=== PATIENT | female | born 1935 | race Caucasian/White ===

== ENCOUNTER 2024-04-29 11:45 | Inpatient (IN) | payer MEDICARE, SELFPAY ==
[2024-04-28 13:03] VITALS: BP 140/61
[2024-04-28 13:18] VITALS: BMI 20.4
[2024-04-28] MEDS: MORPHINE SULFATE 2 MG IV ×2 (13:52→18:59)
--- NOTE | 2024-04-28 14:14 | ED.MUSCINJ ---
HPI-Injury
General
Chief Complaint: Fall
Source: patient and family (Son at bedside)
Exam Limitations: none
Time Seen by Provider: 04/28/24 13:19
Nursing documentation reviewed up to this point in time: agreed with
History of Present Illness-Injury
Initial Injury comments:
88-year-old female with history of HTN, HLD states that she tripped on a cord and fell on the bathroom floor injuring her left orbit and has pain in the left upper thigh area unable to bear weight due to that pain. She is not anticoagulated, denies
loss of consciousness, denies headache or change in vision. She denies neck pain. She denies chest pain or trouble breathing. She denies abdominal pain. She is here from [place] visiting her son.
Past History
Past History
ED Past Medical History: HTN, Hypercholesterolemia, Other (Smoldering myeloma diagnosed 2 weeks ago) and Other (breast cancer 1998 with lumpectomy and radiation therapy)
ED Past Surgical History: Cholecystectomy and Orthopedic
Social History
Tobacco: Non-smoker
Alcohol: None
Personal: Single
Living: alone
Review of Systems
Review of Systems
Allergies reviewed?: Yes
All Other Systems: ROS reviewed and negative except as documented in HPI and ROS
Constitutional: Denies fever or fatigue
EENT: Reports other (bruising, swelling, pain left orbit, denies change in vision in left eye)
Respiratory: Denies trouble breathing
Cardiac: Denies chest pain or syncope
ABD/GI: Denies abdominal pain, nausea, vomiting or diarrhea
: Denies dysuria, difficulty voiding or urgency
Musculoskeletal: Reports other (pain left groin, upper thigh); Denies neck pain or back pain
Phy Exam
Physical Exam
Physical Exam:
GENERAL: No acute distress. A&Ox3.
CONSTITUTIONAL: Afebrile.
EYES: PERRL, conjunctivae normal, EOM's intact. Left mild swelling, periorbital moderate ecchymosis, visual blum intact
Neck: Supple
ENMT: moist mucus membranes, Pharynx nl
RESPIRATORY: Regular respirations, nonlabored, lungs clear.
CARDIOVASCULAR: Regular rate and rhythm, no murmurs, no rubs.
GI: Soft, nontender, normal BS
MUSCULOSKELETAL: No spinal bony tenderness. Tender to palpate left groin area. Moves with ease. Well perfused.
SKIN: Warm, dry, pink
PSYCH: Normal mood and affect. Well kept, interactive and appropriate
NEUROLOGIC: Awake, alert and oriented. No focal neurological deficits. Speech clear. Cranial nerves II through XII intact. Finger-nose intact.
Injury Course
Orders/Labs/Results
Orders:
Orders
04/28/24 13:24
Hip, Left 2-3 Views [CR Hip - LT w/wo Pel 2-3 Vw*] Urgent
Comment:
Reason For Exam: fall, pain
Include a pelvis x-ray?: Yes
04/28/24 13:29
Morphine Sulfate 2 mg IV NOW STA
04/28/24 13:[address] [CT Orbits W/o Iv Contrast] Urgent
Comment:
Reason For Exam: Left orbit injury from fall
04/28/24 14:20
Visual Acuity- Treatment ONCE
04/28/24 14:32
Ondansetron HCl [Zofran] 4 mg PO NOW STA
04/28/24 Dinner
Regular
At Your Request: Limited Participation
Does patient need a safe tray?: No
04/28/24 15:05
CT Pelvis W/o Iv Contrast Urgent
Comment:
Reason For Exam: evaluate pelvic ring fracture
ORTHOPEDIC CONSULT Urgent
Consulting Provider: Thom Ramirez
Was physician already notified: Yes
Reason for consult: pelvic ring fracture
04/28/24 15:12
Morphine Sulfate 4 mg IV NOW STA
04/28/24 15:20
Ondansetron Injectable [Zofran] 4 mg .ROUTE .STK-MED ONE
04/28/24 15:24
Ondansetron Injectable [Zofran] 4 mg IV NOW STA
04/28/24 16:23
Admit/Transfer Patient As Directed
Co-Sign Provider:
Level of Care: Observation services
Assign to:: Medical/Surgical
Physician / Group: denise
Diagnosis: fall
Code Status As Directed
Resuscitation Status: Full Code
04/28/24 18:55
Morphine Sulfate 2 mg IV Q4HPRN PRN
04/28/24 19:34
Acetaminophen [Tylenol] 650 mg PO Q4HPRN PRN
04/28/24 19:34
Activity As Directed
Activity Level: As Tolerated
Pneumatic Compression Sleeves As Directed
Type: Knee high
Vital Signs As Directed
Frequency: Per unit guidelines
Ot Eval And Treat Routine
Pt Eval And Treat Routine
Activity Level: As Tolerated
DX Deep Vein Thrombosis Video Routine
04/28/24 20:00
Calcium Carbonate [Oscal Juan C 500] 500 mg PO BID
Metoprolol [Lopressor] 25 mg PO BID
04/28/24 22:00
Rosuvastatin Calcium [Crestor] 5 mg PO HS
Topiramate [Topamax] 25 mg PO HS
04/29/24 07:01
Complete Blood Count/With Diff IN AM
Comprehensive Metabolic Panel IN AM
04/29/24 08:00
Topiramate [Topamax] 25 mg PO DAILY
Triamterene/Hctz [Dyazide] 1 capsule PO DAILY
MDM/Problems Addressed
MDM/Problems Addressed:
88-year-old female with history of HTN, HLD states that she tripped on a cord and fell on the bathroom floor injuring her left orbit and has pain in the left upper thigh area unable to bear weight due to that pain. She is not anticoagulated, denies
loss of consciousness, denies headache or change in vision. She denies neck pain. She denies chest pain or trouble breathing. She denies abdominal pain. She is here from [place] visiting her son.
Afebrile, VSS
Awake alert and oriented, no focal neurological deficits.
2:[address] orbits: Radiology report read: FINDINGS:
No acute fracture or dislocation. The left orbits are intact. Large left periorbital preseptal hematoma. The bilateral globes, extraocular muscles, and optic nerves are symmetric and within normal limits. Bilateral ocular lens implants. No
retrobulbar hematoma.
The paranasal sinuses are clear. Mild partial opacification of the bilateral mastoid air cells.
Limited intracranial evaluation is unremarkable.
Left hip and pelvis x-ray: Radiology report read: IMPRESSION:
Fractures of the left superior and inferior pubic rami.
3:15 p.m.
Case discussed with Orthopedic Dr. Ramirez who requests CT scan
Pt admitted, Hospitalist notified.
*Critical Care Note
Total Time (30-74mins, 75-104mins- exclusive of procedures): Not Applicable
ED Attending Note
-
Portions of this chart may have been created with voice recognition software.� Occasional wrong word or��sound alike� substitutions may have occurred due to the inherent limitations of voice recognition software.
Discharge Plan
Departure
Patient Disposition: Admit
Date of Disposition: 04/28/24
Time of Disposition: 15:06
Admit to: Med/Surg
Presentation/result/management discussed w/ accepting MD/DO: Hospitalist
Condition: Fair
Discharge Problem:
Fall from slip, trip, or stumble, Fracture, pelvis closed, Contusion of left orbit
Interventions
Interventions:
*Risk Screen - Suicide Last Done: 04/28/24 12:58
*General Assessment Last Done: 04/28/24 12:58
*Neglect/Abuse Screening Last Done: 04/28/24 13:18
*ED COVID-19 Vaccine History Last Done: 04/28/24 19:47
*Nursing Disposition Last Done: 04/28/24 19:36
ED-Musculoskeletal Assessment Last Done: 04/28/24 16:13
ED- Neurological Assessment Last Done: 04/28/24 16:13
ED-Skin Assessment Last Done: 04/28/24 16:13
Discharge Date and Time
Discharge Date/Time: 04/28/24 19:36
[2024-04-28 14:40] VITALS: BP 127/70
[2024-04-28 15:00] VITALS: BP 137/65
[2024-04-28] MEDS: MORPHINE SULFATE 4 MG IV (15:25)
[2024-04-28] MEDS: ZOFRAN 4 MG IV (15:25)
--- NOTE | 2024-04-28 16:26 | HPS.HSE ---
Family Physician
-
Family Physician: * NONE
Chief Complaint
-
fall, left hip pain, eye swelling
History of Present Illness
88-year-old female past medical history of smoldering myeloma diagnosed 2 weeks ago, breast cancer status post lumpectomy/radiation, hypertension, hyperlipidemia, prior right lower extremity DVT, chronic neuropathy, presenting after a fall. She
tripped on a cord and fell on the bathroom floor injuring her left orbital region and left upper thigh. She is unable to bear weight due to the pain. She denies loss of consciousness, headache or changes in vision. She denies neck pain. She
denies chest pain or trouble breathing. She denies abdominal pain.
Patient is from [place] and has been visiting her son.
She denies smoking alcohol use.
Medical History
Past Medical History
Past Medical History: Reports Other (smoldering myeloma diagnosed 2 weeks ago, breast cancer status post lumpectomy/radiation, hypertension, hyperlipidemia, prior right lower extremity DVT, chronic neuropathy)
Past Surgical History: Reports Orthopedic
Social History
Tobacco: Non-smoker
Alcohol: None
Drug: None
Family History
Family History: Not pertinent
Allergies / Home Medications
Allergies reflects when Allergies were last updated in [facility].
Home Medications with original date entered in [facility]
Allergy/Medication List:
Allergies
Allergy/AdvReac Type Severity Reaction Status Date / Time
No Known Allergies Allergy Unverified 04/28/24 12:58
Home Medications
Compound Cream 1 dose topical DAILY to LE nerve pain 04/28/24
calcium carbonate 500 mg PO BID Supplement 04/28/24
metoprolol tartrate 25 mg tablet 25 mg PO BID Blood Pressure 04/28/24
rosuvastatin 5 mg tablet 5 mg PO HS High Cholesterol 04/28/24
topiramate 25 mg tablet 25 mg PO DAILY Neurological Condition 04/28/24
topiramate 25 mg tablet 25 mg PO HS Neurological Condition 04/28/24
triamterene 37.5 mg-hydrochlorothiazide 25 mg tablet 1 tab PO DAILY Blood Pressure 04/28/24
Review of Systems
-
History Source: Patient
A 12 point ROS was completed and negative except as noted: Yes
Constitutional: Reports No Symptoms
EENT: Reports See HPI
Respiratory: Reports No Symptoms
Cardiac: Reports No Symptoms
Abdomen/GI: Reports No Symptoms
: Reports No Symptoms
Musculoskeletal: Reports See HPI
Skin: Reports No Symptoms
Neurological: Reports No Symptoms
Endocrine: Reports No Symptoms
Hematologic/Lymphatic: Reports No Symptoms
Psych: Reports No Symptoms
Physical Exam
Vital Signs
Vital Signs
Temp Pulse Resp BP Pulse Ox
97.8 F 63 17 137/65 96
04/28/24 12:58 04/28/24 15:30 04/28/24 15:30 04/28/24 15:00 04/28/24 15:30
Physical Exam
General: Well Developed, Well Nourished and No Apparent Distress
HEENT: NormoCephalic, Moist mucous membranes, Atraumatic and Other (left periorbital echymosis )
Respiratory: Clear
Cardiac: S1/S2 and Regular Rhythm; No Murmur or Rub
GI: Soft, Non Tender, Non Distended and Normal Bowel Sounds; No Organomegaly
Rectal: Deferred by Provider
Musculoskeletal: No Clubbing, No Cyanosis and No Edema
Skin: No Rash
Neuro: Nonfocal/grossly intact
Data Reviewed
-
Lab Data: Labs Reviewed by me
Old Records: Reviewed
Impression/Plan
-
IMPRESSION:
PLAN:
# Fractures of left superior/inferior pubic rami
# Left anterior pelvis/intramuscular hematoma in the left adductor musculature and left obturator internus muscle
-Orthopedics consulted
-PT/OT
-Tylenol, morphine for pain
# Large left periorbital preseptal hematoma
-Improving
Recently diagnosed smoldering myeloma
Breast cancer status postlumpectomy/radiation
History of right lower extremity DVT 1 year ago
-No longer on anticoagulation
Essential hypertension
-Continue metoprolol
-Continue triamterene/hydrochlorothiazide
Hyperlipidemia
-Continue statin
Lower extremity neuropathy
-Continue Topamax
Full code
DVT prophylaxis�SCDs
Regular diet
[2024-04-28 18:03] VITALS: BP 109/67
[2024-04-28] MEDS: FLUSH (NSS) 1 FLUSH IV (18:59)
[2024-04-28 19:00] LABS: Hematocrit 32.8 % (37.0-47.0); Hemoglobin 11.8 g/dL (12.0-16.0); Mean Corpuscular Hgb 31.1 pg (27.0-31.0); Mean Corpuscular Volume 86.3 fL (81.0-99.0); Mean Platelet Volume 10.3 fL (7.4-10.4); Platelet Count 176 10^3/uL (130-400); Red Cell Dist. Width 13.2 % (11.5-14.5); White Blood Cell Count 8.1 10^3/uL (4.8-10.8)
[2024-04-28 19:12] LABS: Blood Urea Nitrogen 20 mg/dl (7-17); Calcium 9.2 mg/dl (8.4-10.2); Carbon Dioxide 23 mmol/L (22-30); Chloride 105 mmol/L (98-107); Estimated Creatinine Clearance 33 ml/min; Glucose 108 mg/dl (70-99); Potassium 3.2 mmol/L (3.5-5.1); Sodium 136 mmol/L (135-145); eGFR > 60.00
[2024-04-28 19:47] VITALS: BMI 20.1
[2024-04-28 19:52] VITALS: BP 129/63; BMI 20.1
--- NOTE | 2024-04-28 20:30 | PTCARENOTE ---
Patient arrived from ED, was able to tolerate press puller into bed. Participated in admission, good historian. L eye swollen, ecdemic, patient denies visual impairment. HOB elevated. patient was able to sit on bedpan with minimal assist. Currently
eating dinner her son brought in.
[2024-04-28] MEDS: OSCAL CAL 500 500 MG PO (20:39)
[2024-04-28] MEDS: LOPRESSOR 25 MG PO (20:39)
[2024-04-28] MEDS: CRESTOR 5 MG PO (21:23)
[2024-04-28] MEDS: TOPAMAX 25 MG PO (21:24)
[2024-04-28 23:48] VITALS: BP 96/57
[2024-04-29] MEDS: MORPHINE SULFATE 2 MG IV ×2 (00:31→06:19)
[2024-04-29 07:19] LABS: % Basophils 0.3 % (0-2); % Eosinophils 0.4 % (0-6); % Immature Granulocytes 0.4 % (0-0.5); % Lymphocytes 16.6 % (20.5-51.1); % Monocytes 9.1 % (1.7-9.3); % Neutrophils 73.2 % (42.2-75.2); Absolute Lymphocytes 1.3 10^3/uL (1.2-3.4); Absolute Monocytes 0.7 10^3/uL (0.1-0.6); Absolute Neutrophils 5.6 10^3/uL (1.4-6.5); Hematocrit 33.9 % (37.0-47.0); Hemoglobin 11.2 g/dL (12.0-16.0); Mean Corpuscular Hgb 30.1 pg (27.0-31.0); Mean Corpuscular Volume 91.1 fL (81.0-99.0); Mean Platelet Volume 10.3 fL (7.4-10.4); Nucleated Red Blood Cells % 0 %; Platelet Count 173 10^3/uL (130-400); Red Blood Cell Count 3.72 10^6/uL (4.20-5.40); White Blood Cell Count 7.6 10^3/uL (4.8-10.8)
--- NOTE | 2024-04-29 07:29 | CON.ORTHO ---
Consultation
-
Date/Time Consultation Requested: 1459 04/28/2024
Date/Time Consultation Performed: 0645 04/28/2024
Requesting Provider: Luna Dent
Performing Provider: Geovany Ramirez
Reason for Consultation: L hip injury
Consultation - Orthopedics
History
Orthopedic Surgery Note
CC: left hip pain
HPI: 88-year-old female visiting from [place] presents for evaluation after a fall in the bathroom. She reports tripping on a cord and landing on the left side. She had immediate pain and inability to weight-bear. No prior hip pain. She lives alone.
PMH/PSH: myeloma, h/o CA breast, HTN, HL, h/o DVT, neuropathy
Medications: reviewed
Family History: Family history was reviewed. Noncontributory
Social history: Nonsmoker, no illicit drugs
Exam
General appearance: Pleasant. No acute distress.
Head: Normocephalic/atraumatic
Nose: No lesions or discharge.
Skin: No obvious rashes or open wounds
Lungs: No audible wheezing, no cough or sputum production
Musculoskeletal:
LLE:
skin intact without open wounds
fires ehl/fhl/ta/gs
sensation intact to light touch distally s/s/sp/dp/t
Toes wwp, 1+ DP
passive hip motion deferred due to presence of fracture
Imaging: Pelvis x-rays performed 04/28/2024 reviewed by me. These show minimally displaced fractures of the left superior and inferior pubic ramus. No signs of left proximal femur fracture.
Pelvis CT performed 04/28/2024 was reviewed by me. These show minimally displaced fractures of the left superior and inferior pubic rami. No signs of proximal femur fracture. No signs of posterior ring injury within the sacrum and SI joint.
AP:
88-year-old female with minimally displaced left superior and inferior pubic rami fractures after a fall 1 day ago. I discussed the injury with the patient and discussed treatment options. We discussed nonoperative treatment with touchdown
weightbearing on the left lower extremity. I recommended follow-up x-rays in about 4 weeks to assess her clinical progress. If x-rays remain unchanged and she is improving clinically, at that point she likely will be able to advance to
weightbearing as tolerated with a walker. We discussed that these injuries can take several months to heal and she should avoid further falls or injuries. She should work with physical therapy to assess fitness for returning to home or necessity
for fdc care. All questions were answered.
> 75 minutes was spent reviewing the clinical information, evaluating the patient, and formulating clinical plan.
Allergies / Home Medications
Allergy/AdvReac Type Severity Reaction Status Date / Time
No Known Allergies Allergy Unverified 04/28/24 12:58
�Medication �Instructions �Recorded
Compound Cream 1 dose topical DAILY to LE nerve 04/28/24
pain
calcium carbonate 500 mg PO BID Supplement 04/28/24
metoprolol tartrate 25 mg tablet 25 mg PO BID Blood Pressure 04/28/24
rosuvastatin 5 mg tablet 5 mg PO HS High Cholesterol 04/28/24
topiramate 25 mg tablet 25 mg PO DAILY Neurological 04/28/24
Condition
topiramate 25 mg tablet 25 mg PO HS Neurological Condition 04/28/24
triamterene 37.5 1 tab PO DAILY Blood Pressure 04/28/24
mg-hydrochlorothiazide 25 mg tablet
Vital Signs / Lab Results
Temp Pulse Resp BP Pulse Ox
98.2 F 66 16 96/57 95
04/28/24 23:48 04/28/24 23:48 04/28/24 23:48 04/28/24 23:48 04/28/24 23:48
04/29/24 07:01
[2024-04-29] MEDS: LOPRESSOR PO (07:57)
[2024-04-29] MEDS: DYAZIDE PO (07:57)
[2024-04-29] MEDS: OSCAL CAL 500 500 MG PO ×2 (07:59→20:52)
[2024-04-29] MEDS: TOPAMAX 25 MG PO ×2 (07:59→22:03)
[2024-04-29 08:01] VITALS: BP 97/56
[2024-04-29 08:09] LABS: ALT (SGPT) 11 U/L (0-35); AST (SGOT) 22 U/L (14-36); Albumin 3.5 g/dl (3.5-5.0); Alkaline Phosphatase 63 U/L (38-126); Blood Urea Nitrogen 20 mg/dl (7-17); Calcium 9.8 mg/dl (8.4-10.2); Carbon Dioxide 26 mmol/L (22-30); Chloride 102 mmol/L (98-107); Estimated Creatinine Clearance 28 ml/min; Glucose 104 mg/dl (70-99); Potassium 3.1 mmol/L (3.5-5.1); Sodium 136 mmol/L (135-145); Total Bilirubin 0.6 mg/dl (0.2-1.3); Total Protein 5.5 g/dl (6.3-8.2); eGFR > 60.00
[2024-04-29] MEDS: KCL ELIXIR 40 MEQ PO (08:41)
--- NOTE | 2024-04-29 11:23 | W.PN.HOSP.TC ---
Addendum entered and electronically signed by Ten Coronado MD 04/29/24 13:10:
update son over the phone in details too.
Original Note:
Today's Communication/Plan
-
PT/OT
Pain control
Assessment / Plan
Assessment / Plan
# Fractures of left superior/inferior pubic rami
# Left anterior pelvis/intramuscular hematoma in the left adductor musculature and left obturator internus muscle
-Orthopedics consulted
-PT/OT
-pain control
-Ortho recs touchdown weightbearing on the left lower extremity. follow-up x-rays in about 4 weeks to assess her clinical progress. If x-rays remain unchanged and she is improving clinically, at that point she likely will be able to advance to
weightbearing as tolerated with a walker.
# Large left periorbital preseptal hematoma
-Improving. No vision problems
Recently diagnosed smoldering myeloma
Breast cancer status postlumpectomy/radiation
History of right lower extremity DVT 1 year ago
-No longer on anticoagulation
Essential hypertension
-Continue metoprolol
-Continue triamterene/hydrochlorothiazide
-BP soft this am. Hold parameters added to bp meds
Hyperlipidemia
-Continue statin
Lower extremity neuropathy
-Continue Topamax
Full code
DVT prophylaxis�SCDs
d/w wtih daughter over the phone in details
Anticipated Discharge: Within 24 hours
Subjective/Interval History
-
Date of Service: April 29, 2024
States of severe pelvic pain with movement
states left eye wtih improvement in edema
no headache
Objective Data
-
Labs:
Laboratory Results
04/29/24
07:01
WBC 7.6
Hgb 11.2 L
Hct 33.9 L
Plt Count 173
Sodium 136
Potassium 3.1 L
Chloride 102
Carbon Dioxide 26
BUN 20 H
Creatinine 0.9
Glucose 104 H
Calcium 9.8
Total Bilirubin 0.6
AST 22
ALT 11
Alkaline Phosphatase 63
Vital Signs:
Vital Signs
Temp Pulse Resp BP Pulse Ox
98.3 F 67 20 97/56 95
04/29/24 08:01 04/29/24 08:01 04/29/24 08:01 04/29/24 08:01 04/29/24 10:20
I&O
04/28/24 04/29/24 04/30/24
06:59 06:59 06:59
Intake Total 240 / 240
Output Total 100 / 100
Balance 140 / 140
Physical Exam
-
General: Well Developed and No Apparent Distress
HEENT: Normocephalic, Atraumatic, Moist Mucous Membranes and Other (left periorbital edema and bruising noted )
Respiratory: Clear to Auscultation
Cardiac: Regular Rhythm and S1/S2; Negative Murmur, Rub or Gallop
GI: Soft, Nontender, Nondistended and Normal Bowel Sounds; Negative Organomegaly
Rectal: Deferred by Provider
Musculoskeletal: No Clubbing, No Cyanosis and No Edema
Skin: Negative Rash
Neuro: Awake and Nonfocal/Grossly Intact
Psych: Calm
[2024-04-29] MEDS: TYLENOL 650 MG PO ×2 (12:12→20:53)
[2024-04-29] MEDS: MORPHINE SULFATE 1 MG IV ×2 (12:31→23:11)
[2024-04-29] MEDS: FLUSH (NSS) 1 FLUSH IV ×2 (12:32→12:53)
[2024-04-29] MEDS: ZOFRAN 4 MG IV (12:53)
[2024-04-29 13:30] VITALS: BP 111/65; BP 124/73; PULSE 72; O2SAT 94
[2024-04-29 13:45] VITALS: BP 111/65; BP 124/73; PULSE 72; O2SAT 96
[2024-04-29 15:30] VITALS: BP 102/57
--- NOTE | 2024-04-29 15:35 | CM ---
CM met with Cora and her son at bedside earlier today to complete IA.
Cora is visiting from [place] and had a fall with new fx pelvis. She cannot return home until she is able to sit in a car for the [address]. It appears she may be medically stable for discharge tomorrow. I spoke with Cora and her son - they
feel that Cora cannot go to her son's home due to many steps and no bathroom facilities on the ground floor.
IMM reviewed with Cora and her son; they may appeal the discharge.
Referrals made for SNF transfer pending 3 day stay; Cora does not qualify for the [facility] SNF waiver.
Plan: CM to follow for SNF placement
[2024-04-29] MEDS: TYLENOL PO (17:05)
[2024-04-29] MEDS: LOPRESSOR 25 MG PO (20:52)
[2024-04-29] MEDS: CRESTOR 5 MG PO (22:03)
[2024-04-29 23:14] VITALS: BP 99/56
[2024-04-30] MEDS: TYLENOL PO ×5 (00:42→21:24)
[2024-04-30 02:41] VITALS: BP 129/66
[2024-04-30] MEDS: ULTRAM 25 MG PO (02:41)
[2024-04-30 06:49] LABS: % Basophils 0.5 % (0-2); % Eosinophils 1.3 % (0-6); % Immature Granulocytes 0.4 % (0-0.5); % Lymphocytes 16.6 % (20.5-51.1); % Monocytes 8.5 % (1.7-9.3); % Neutrophils 72.7 % (42.2-75.2); Absolute Eosinophils 0.1 10^3/uL (0-0.7); Absolute Lymphocytes 1.2 10^3/uL (1.2-3.4); Absolute Monocytes 0.6 10^3/uL (0.1-0.6); Absolute Neutrophils 5.4 10^3/uL (1.4-6.5); Hematocrit 32.1 % (37.0-47.0); Hemoglobin 10.6 g/dL (12.0-16.0); Mean Corpuscular Hgb 30.2 pg (27.0-31.0); Mean Corpuscular Volume 91.5 fL (81.0-99.0); Mean Platelet Volume 10.4 fL (7.4-10.4); Nucleated Red Blood Cells % 0 %; Platelet Count 145 10^3/uL (130-400); Red Blood Cell Count 3.51 10^6/uL (4.20-5.40); Red Cell Dist. Width 13.2 % (11.5-14.5); White Blood Cell Count 7.4 10^3/uL (4.8-10.8)
[2024-04-30 07:30] VITALS: BP 110/84
[2024-04-30] MEDS: TYLENOL 650 MG PO ×2 (08:41→12:53)
[2024-04-30] MEDS: OSCAL CAL 500 500 MG PO ×2 (08:41→21:20)
[2024-04-30] MEDS: LOPRESSOR 25 MG PO ×2 (08:42→21:20)
[2024-04-30] MEDS: TOPAMAX 25 MG PO ×3 (08:42→21:23)
[2024-04-30] MEDS: DYAZIDE PO (08:44)
--- NOTE | 2024-04-30 10:20 | W.PN.HOSP.TC ---
Today's Communication/Plan
-
pain control
await placement to SNF
Requires 3MN stay
family touring facilities
Assessment / Plan
Assessment / Plan
General: Well Developed and No Apparent Distress
HEENT: Normocephalic, Atraumatic, Moist Mucous Membranes and Other (left periorbital edema and bruising noted improving)
Respiratory: Clear to Auscultation
Cardiac: Regular Rhythm and S1/S2; Negative Murmur, Rub or Gallop
GI: Soft, Nontender, Nondistended and Normal Bowel Sounds; Negative Organomegaly
Rectal: Deferred by Provider
Musculoskeletal: No Clubbing, No Cyanosis and No Edema
Skin: Negative Rash
Neuro: Awake and Nonfocal/Grossly Intact
Psych: Calm
# Fractures of left superior/inferior pubic rami
# Left anterior pelvis/intramuscular hematoma in the left adductor musculature and left obturator internus muscle
-Orthopedics consulted
-PT/OT recs SNF-Await placement
-pain control
-Ortho recs touchdown weightbearing on the left lower extremity. follow-up x-rays in about 4 weeks to assess her clinical progress. If x-rays remain unchanged and she is improving clinically, at that point she likely will be able to advance to
weightbearing as tolerated with a walker.
# Large left periorbital preseptal hematoma
-Improving. No vision problems
Recently diagnosed smoldering myeloma
Breast cancer status postlumpectomy/radiation
History of right lower extremity DVT 1 year ago
-No longer on anticoagulation
Essential hypertension
-Continue metoprolol
-Continue triamterene/hydrochlorothiazide
-BP soft this am. Hold parameters added to bp meds
Hyperlipidemia
-Continue statin
Lower extremity neuropathy
-Continue Topamax
Full code
DVT prophylaxis�SCDs in setting of intramuscular hematoma
PT/OT-SNF. Requires 3MN stay. Ongoing dispo efforts
Anticipated Discharge: > 48 hours
Subjective/Interval History
-
Date of Service: April 30, 2024
pain controlled with meds
worse with movements at times
Objective Data
-
Labs:
Laboratory Results
04/30/24
06:28
WBC 7.4
Hgb 10.6 L
Hct 32.1 L
Plt Count 145
Vital Signs:
Vital Signs
Temp Pulse Resp BP Pulse Ox
98.7 F 71 18 110/84 97
04/30/24 07:30 04/30/24 08:42 04/30/24 07:30 04/30/24 08:42 04/30/24 09:45
I&O
04/29/24 04/30/24 05/01/24
06:59 06:59 06:59
Intake Total 240 / 240 720 / 720
Output Total 100 / 100 300 / 300
Balance 140 / 140 420 / 420
[2024-04-30] MEDS: MORPHINE SULFATE 1 MG IV ×2 (11:35→22:53)
--- NOTE | 2024-04-30 14:50 | CM ---
Addendum entered by Niurka Jenkins 05/01/24 13:27:
REBECA spoke with Cora's daughter. She plans to tour [facility] today, and would also consider [facility]. Will need to determine bed availability tomorrow.
CM to continue to follow for ARU vs. SNF.
Addendum entered by Niurka Jenkins 04/30/24 14:56:
SNF referrals sent to: [facility], [facility] [place], [facility], and [facility].
Original Note:
CM met with Cora's family and after touring facilities, they are requesting transfer to [facility] at . Referral sent via [facility].
I spoke with Nati Owens who advised that they would review the referral information on 05/02/2024.
CM will follow for ARU admission; will send SNF referrals as a back up plan.
[2024-04-30 15:10] VITALS: BP 100/55
[2024-04-30] MEDS: CRESTOR 5 MG PO (21:20)
[2024-04-30] MEDS: ZOFRAN 4 MG IV (21:21)
[2024-04-30 23:37] VITALS: BP 136/60
[2024-05-01] MEDS: TYLENOL PO ×5 (00:18→16:07)
[2024-05-01 06:20] VITALS: BP 108/55
[2024-05-01 07:17] LABS: % Basophils 0.3 % (0-2); % Eosinophils 0.9 % (0-6); % Immature Granulocytes 0.4 % (0-0.5); % Lymphocytes 14.6 % (20.5-51.1); % Monocytes 6.8 % (1.7-9.3); Absolute Eosinophils 0.1 10^3/uL (0-0.7); Absolute Lymphocytes 1.1 10^3/uL (1.2-3.4); Absolute Monocytes 0.5 10^3/uL (0.1-0.6); Absolute Neutrophils 5.8 10^3/uL (1.4-6.5); Hematocrit 30.3 % (37.0-47.0); Hemoglobin 10.3 g/dL (12.0-16.0); Mean Corpuscular Hgb 30.4 pg (27.0-31.0); Mean Corpuscular Volume 89.4 fL (81.0-99.0); Nucleated Red Blood Cells % 0 %; Platelet Count 162 10^3/uL (130-400); Red Blood Cell Count 3.39 10^6/uL (4.20-5.40); Red Cell Dist. Width 13.1 % (11.5-14.5); White Blood Cell Count 7.5 10^3/uL (4.8-10.8)
[2024-05-01 07:20] VITALS: BP 108/55
[2024-05-01] MEDS: DYAZIDE PO (07:52)
[2024-05-01] MEDS: LOPRESSOR PO (07:53)
[2024-05-01] MEDS: OSCAL CAL 500 500 MG PO ×2 (07:53→21:10)
[2024-05-01] MEDS: ULTRAM 25 MG PO (10:05)
--- NOTE | 2024-05-01 11:31 | W.PN.HOSP.TC ---
Addendum entered and electronically signed by Ten Coronado MD 05/01/24 13:27:
PT OT recommends acute rehab. PMNR consulted. Discussed with daughter at bedside in details.
Original Note:
Today's Communication/Plan
-
Pain control
Out of bed
Await placement to SNF
adjust bp meds
Assessment / Plan
Assessment / Plan
General: Well Developed and No Apparent Distress
HEENT: Normocephalic, Atraumatic, Moist Mucous Membranes and Other (left periorbital edema and bruising noted improving)
Respiratory: Clear to Auscultation
Cardiac: Regular Rhythm and S1/S2; Negative Murmur, Rub or Gallop
GI: Soft, Nontender, Nondistended and Normal Bowel Sounds; Negative Organomegaly
Rectal: Deferred by Provider
Musculoskeletal: No Clubbing, No Cyanosis and No Edema
Skin: Negative Rash
Neuro: Awake and Nonfocal/Grossly Intact
Psych: Calm
# Fractures of left superior/inferior pubic rami
# Left anterior pelvis/intramuscular hematoma in the left adductor musculature and left obturator internus muscle
-Orthopedics consulted
-PT/OT recs SNF-Await placement
-pain control
-Ortho recs touchdown weightbearing on the left lower extremity. follow-up x-rays in about 4 weeks to assess her clinical progress. If x-rays remain unchanged and she is improving clinically, at that point she likely will be able to advance to
weightbearing as tolerated with a walker.
# Large left periorbital preseptal hematoma
-Improving. No vision problems
Recently diagnosed smoldering myeloma
Breast cancer status postlumpectomy/radiation
History of right lower extremity DVT 1 year ago
-No longer on anticoagulation
Essential hypertension
-Continue metoprolol and will decreased dose to 12.5mg BID
-Continue triamterene/hydrochlorothiazide. May need to stop on DC if requiring it.
-Blood pressure has been soft and has not received triamterene/hydrochlorothiazide so far.
-Blood pressure 108/58
-Hold parameters added to bp meds
Hyperlipidemia
-Continue statin
Lower extremity neuropathy
-Continue Topamax
Full code
DVT prophylaxis�SCDs in setting of intramuscular hematoma
PT/OT-SNF. Requires 3MN stay. Ongoing dispo efforts
Anticipated Discharge: > 48 hours
Subjective/Interval History
-
Date of Service: May 01, 2024
States of intermittent pain
Objective Data
-
Labs:
Laboratory Results
05/01/24
05:52
WBC 7.5
Hgb 10.3 L
Hct 30.3 L
Plt Count 162
Vital Signs:
Vital Signs
Temp Pulse Resp BP Pulse Ox
97.7 F 59 16 108/58 96
05/01/24 07:20 05/01/24 07:53 05/01/24 07:20 05/01/24 07:53 05/01/24 10:35
I&O
04/30/24 05/01/24 05/02/24
06:59 06:59 06:59
Intake Total 720 / 720 1800 / 1800
Output Total 300 / 300
Balance 420 / 420 1800 / 1800
[2024-05-01] MEDS: MORPHINE SULFATE 1 MG IV (15:18)
[2024-05-01] MEDS: FLUSH (NSS) 1 FLUSH IV (15:19)
[2024-05-01 15:20] VITALS: BP 133/65
[2024-05-01 16:24] VITALS: BP 120/58; PULSE 73; O2SAT 93
[2024-05-01] MEDS: LOPRESSOR 12.5 MG PO (21:10)
[2024-05-01] MEDS: TYLENOL 650 MG PO (21:11)
[2024-05-01] MEDS: CRESTOR 5 MG PO (21:11)
[2024-05-01] MEDS: TOPAMAX 25 MG PO (21:11)
[2024-05-01 23:24] VITALS: BP 104/56
[2024-05-02] MEDS: TYLENOL 650 MG PO ×4 (03:57→21:44)
--- NOTE | 2024-05-02 06:17 | W.PN.UPDATE ---
Update Note
Progress Note Update
Pt having dysuria.Would like ua checked. Will order.
--- NOTE | 2024-05-02 06:17 | PTCARENOTE ---
Pt aaox3 able to make her needs known.Pt aware of prn pain meds & scheduled tylenol.Pt encouraged to get oob as needed with assist.Pt prefers to do it in am.Pt c/o burning this am with voiding.Pt was bladder scanned for 202 & pt voided 150 in
bedpan.COKE DRAWER sales contracts analyst made aware of it & pt wants to urine specimen send.BRIGHT CUTTER was notified of pt complaints as pt states she knows when she gets a UTI. pt was also provided with more PO intake.Plan of care continued.
[2024-05-02 07:40] VITALS: BP 127/71
[2024-05-02 07:47] LABS: % Basophils 0.4 % (0-2); % Eosinophils 1.6 % (0-6); % Immature Granulocytes 0.4 % (0-0.5); % Lymphocytes 15.2 % (20.5-51.1); % Monocytes 7.7 % (1.7-9.3); % Neutrophils 74.7 % (42.2-75.2); Absolute Eosinophils 0.1 10^3/uL (0-0.7); Absolute Lymphocytes 1.1 10^3/uL (1.2-3.4); Absolute Monocytes 0.5 10^3/uL (0.1-0.6); Absolute Neutrophils 5.2 10^3/uL (1.4-6.5); Hematocrit 29.5 % (37.0-47.0); Hemoglobin 10.2 g/dL (12.0-16.0); Mean Corp Hgb Conc. 34.6 g/dL (33.0-37.0); Mean Corpuscular Hgb 30.6 pg (27.0-31.0); Mean Corpuscular Volume 88.6 fL (81.0-99.0); Mean Platelet Volume 10.7 fL (7.4-10.4); Nucleated Red Blood Cells % 0 %; Platelet Count 165 10^3/uL (130-400); Red Blood Cell Count 3.33 10^6/uL (4.20-5.40); Red Cell Dist. Width 13.1 % (11.5-14.5)
[2024-05-02] MEDS: LOPRESSOR 12.5 MG PO ×2 (08:09→21:43)
[2024-05-02] MEDS: OSCAL CAL 500 500 MG PO ×2 (08:10→21:44)
[2024-05-02] MEDS: TOPAMAX 25 MG PO ×2 (08:10→21:45)
[2024-05-02] MEDS: DYAZIDE 1 CAPSULE PO (08:10)
[2024-05-02 08:40] LABS: Urine Albumin Negative (Neg - Trace); Urine Bilirubin Negative (Negative); Urine Character Clear (Clear); Urine Color Yellow; Urine Glucose Negative (Negative); Urine Ketone Negative (Negative); Urine Leukocyte 2+ (Negative); Urine Nitrite Negative (Negative); Urine Occult Blood Negative (Negative); Urine Urobilinogen Negative (Neg - 1+)
[2024-05-02 09:15] LABS: Urine Bacteria Many (Negative); Urine Red Blood Cell 0-2 /HPF (0-2); Urine White Cell 26-30 /HPF (0-5)
[2024-05-02] MEDS: ULTRAM 25 MG PO (10:16)
--- NOTE | 2024-05-02 10:23 | W.PN.HOSP.TC ---
Addendum entered and electronically signed by Ten Coronado MD 05/02/24 11:30:
hypokalemia-replete/monitor
Original Note:
Today's Communication/Plan
-
Await PMNR evaluation
Acute rehab on dispo
Ongoing disposition efforts
Case management aware
Assessment / Plan
Assessment / Plan
General: Well Developed and No Apparent Distress
HEENT: Normocephalic, Atraumatic, Moist Mucous Membranes and Other (left periorbital edema and bruising noted improving)
Respiratory: Clear to Auscultation
Cardiac: Regular Rhythm and S1/S2; Negative Murmur, Rub or Gallop
GI: Soft, Nontender, Nondistended and Normal Bowel Sounds; Negative Organomegaly
Rectal: Deferred by Provider
Musculoskeletal: No Clubbing, No Cyanosis and No Edema
Skin: Negative Rash
Neuro: Awake and Nonfocal/Grossly Intact
Psych: Calm
# Fractures of left superior/inferior pubic rami
# Left anterior pelvis/intramuscular hematoma in the left adductor musculature and left obturator internus muscle
-Orthopedics consulted
-PT/OT recs SNF-Await placement
-pain control
-Ortho recs touchdown weightbearing on the left lower extremity. follow-up x-rays in about 4 weeks to assess her clinical progress. If x-rays remain unchanged and she is improving clinically, at that point she likely will be able to advance to
weightbearing as tolerated with a walker.
# Large left periorbital preseptal hematoma
-Improving. No vision problems
Recently diagnosed smoldering myeloma
Breast cancer status postlumpectomy/radiation
History of right lower extremity DVT 1 year ago
-No longer on anticoagulation
Essential hypertension
-Continue metoprolol and will decreased dose to 12.5mg BID
-Blood pressure has been soft and has not received triamterene/hydrochlorothiazide intermittently
-Blood pressure 127/71
-Hold parameters added to bp meds
Hyperlipidemia
-Continue statin
Lower extremity neuropathy
-Continue Topamax
Full code
DVT prophylaxis�SCDs in setting of intramuscular hematoma
PT/OT-acute rehab. PMNR consulted.
Anticipated Discharge: 24 - 48 hours
Subjective/Interval History
-
Date of Service: May 02, 2024
Agreed to get OOB
Objective Data
-
Labs:
Laboratory Results
05/02/24
06:56
WBC 7.0
Hgb 10.2 L
Hct 29.5 L
Plt Count 165
Vital Signs:
Vital Signs
Temp Pulse Resp BP Pulse Ox
97.4 F 64 16 127/71 95
05/02/24 07:40 05/02/24 08:10 05/02/24 07:40 05/02/24 08:10 05/02/24 07:40
I&O
05/01/24 05/02/24 05/03/24
06:59 06:59 06:59
Intake Total 1800 / 1800 480 / 480
Balance 1800 / 1800 480 / 480
--- NOTE | 2024-05-02 10:59 | PN.CDI ---
CDI
- -
CDI:
Physician Documentation Request
Admit Date: 04/29/24 11:45
Dear Doctor Cliff,
Clinical Indicators:
Patient admitted with fractures of left superior/inferior pubic rami.
7/5 Potassium Elixir 40 meq po x 1.
Potassium levels:
04/28/24 04/29/24
18:54 07:01
Potassium 3.2 L 3.1 L
Based on the above, could you clarify in the progress notes, the appropriate diagnosis, if significant, that supports the above abnormalities and additional evaluation, monitoring and/or treatment rendered:
Hypokalemia
Abnormal lab values, clinically insignificant
Other
Use of terms such as suspected, likely, concern for, or probable (associated with a specific diagnosis that is being evaluated, monitored, or treated as if it exists) are acceptable and can be coded in the inpatient setting, when documented at the
time of discharge.
Thank you,
ASHLEIGH Gudino RN
CDI Specialist
available via tiger text
Please use your independent medical judgment in providing your response.
--- NOTE | 2024-05-02 11:31 | CM ---
Addendum entered by Niurka Jenkins 05/02/24 15:59:
Family is considering transfer to [facility] for rehabilitation rather than [facility] since it is not yet clear if she will be accepted and if there is a bed available. [facility] is reviewing the therapy notes and needs to get approval from
their team prior to giving an acceptance. [facility] will require a covid test prior to transfer if accepted.
Transport will be via w/c van. Daughter will need to be contacted for payment once w/c van set up.
Original Note:
CM spoke with Nati at [facility] regarding transfer today. Uncertain if patient will be able to tolerate acute rehab; will review with [facility] team and also needs to determine bed availablility.
CM to follow; await determination for transfer to [facility].
[2024-05-02 12:10] VITALS: BP 125/65; BP 139/73; PULSE 73; O2SAT 95
[2024-05-02 13:20] VITALS: BP 125/65; BP 139/73; PULSE 73; O2SAT 95
[2024-05-02] MEDS: TYLENOL PO ×2 (13:26)
[2024-05-02 15:14] VITALS: BP 137/79
[2024-05-02] MEDS: CRESTOR 5 MG PO (21:45)
[2024-05-02 23:08] VITALS: BP 121/71
[2024-05-03] MEDS: TYLENOL PO ×3 (00:29→13:54)
[2024-05-03] MEDS: ULTRAM 25 MG PO (03:19)
--- NOTE | 2024-05-03 03:29 | W.PN.UPDATE ---
Addendum entered and electronically signed by ANDREW Bennett 05/03/24 03:42:
CrCl<30 will change to Keflex
Original Note:
Update Note
Progress Note Update
pt with dysuria. Ua from yesterday morning with +leukocytes.
given uti symptoms will starts abx. pt states she normally is given macrobid from previous uti
--- NOTE | 2024-05-03 06:26 | PTCARENOTE ---
Pt c/o urinary frequency & burning in the morning. RETAIL HELPER bone crusher made aware of it pt voided 200cc in bedpan at this time. Pt refused to get oob overnight & prefers to use the bedpan. Pt was made aware of prn pain meds as needed for left hip pain.
Call smith in reach.CONSULTANTS INTERN ordered antibiotic for pt.Plan of care continued.
[2024-05-03 07:00] VITALS: BP 132/70
[2024-05-03 07:09] LABS: % Basophils 0.5 % (0-2); % Eosinophils 1.1 % (0-6); % Immature Granulocytes 0.3 % (0-0.5); % Lymphocytes 15.1 % (20.5-51.1); % Monocytes 6.6 % (1.7-9.3); % Neutrophils 76.4 % (42.2-75.2); Absolute Eosinophils 0.1 10^3/uL (0-0.7); Absolute Lymphocytes 0.9 10^3/uL (1.2-3.4); Absolute Monocytes 0.4 10^3/uL (0.1-0.6); Absolute Neutrophils 4.8 10^3/uL (1.4-6.5); Hematocrit 30.7 % (37.0-47.0); Hemoglobin 10.7 g/dL (12.0-16.0); Mean Corp Hgb Conc. 34.9 g/dL (33.0-37.0); Mean Corpuscular Hgb 30.7 pg (27.0-31.0); Mean Corpuscular Volume 88.2 fL (81.0-99.0); Mean Platelet Volume 10.6 fL (7.4-10.4); Nucleated Red Blood Cells % 0 %; Platelet Count 191 10^3/uL (130-400); Red Blood Cell Count 3.48 10^6/uL (4.20-5.40); Red Cell Dist. Width 13.1 % (11.5-14.5); White Blood Cell Count 6.2 10^3/uL (4.8-10.8)
[2024-05-03 07:34] LABS: Blood Urea Nitrogen 15 mg/dl (7-17); Calcium 9.1 mg/dl (8.4-10.2); Carbon Dioxide 27 mmol/L (22-30); Chloride 104 mmol/L (98-107); Estimated Creatinine Clearance 37 ml/min; Glucose 105 mg/dl (70-99); Potassium 3.3 mmol/L (3.5-5.1); Sodium 137 mmol/L (135-145); eGFR > 60.00
--- NOTE | 2024-05-03 09:49 | W.PN.HOSP.TC ---
Today's Communication/Plan
-
dc today
Assessment / Plan
Assessment / Plan
General: Well Developed and No Apparent Distress
HEENT: Normocephalic, Atraumatic, Moist Mucous Membranes and Other (left periorbital edema and bruising noted improving)
Respiratory: Clear to Auscultation
Cardiac: Regular Rhythm and S1/S2; Negative Murmur, Rub or Gallop
GI: Soft, Nontender, Nondistended and Normal Bowel Sounds; Negative Organomegaly
Rectal: Deferred by Provider
Musculoskeletal: No Clubbing, No Cyanosis and No Edema
Skin: Negative Rash
Neuro: Awake and Nonfocal/Grossly Intact
Psych: Calm
# Fractures of left superior/inferior pubic rami
# Left anterior pelvis/intramuscular hematoma in the left adductor musculature and left obturator internus muscle
-Orthopedics consulted
-PT/OT recs SNF-Await placement
-pain control
-Ortho recs touchdown weightbearing on the left lower extremity. follow-up x-rays in about 4 weeks to assess her clinical progress. If x-rays remain unchanged and she is improving clinically, at that point she likely will be able to advance to
weightbearing as tolerated with a walker.
#Symptomatic uti
-cont keflex
Hypokalemia
replete/monitor
# Large left periorbital preseptal hematoma
-Improving. No vision problems
Recently diagnosed smoldering myeloma
Breast cancer status postlumpectomy/radiation
History of right lower extremity DVT 1 year ago
-No longer on anticoagulation
Essential hypertension
-Continue metoprolol and will decreased dose to 12.5mg BID
-Blood pressure has been soft and has not received triamterene/hydrochlorothiazide intermittently
-Blood pressure controlled.
-Hold parameters added to bp meds
Hyperlipidemia
-Continue statin
Lower extremity neuropathy
-Continue Topamax
Full code
DVT prophylaxis�SCDs in setting of intramuscular hematoma
PT/OT-acute rehab.
d/w with daughter over the phone in details
More than 30 minutes spent in discharge including
Final examination of the patient
Summarizing hospital stay
Instructions for continuing care to all relevant caregivers
Preparation of discharge records, prescriptions, and referral forms
Total time spent (in minutes): 45
Anticipated Discharge: Today
Subjective/Interval History
-
Date of Service: May 03, 2024
states passing gas
Objective Data
-
Labs:
Laboratory Results
05/03/24
06:36
WBC 6.2
Hgb 10.7 L
Hct 30.7 L
Plt Count 191
Sodium 137
Potassium 3.3 L
Chloride 104
Carbon Dioxide 27
BUN 15
Creatinine 0.7
Glucose 105 H
Calcium 9.1
Vital Signs:
Vital Signs
Temp Pulse Resp BP Pulse Ox
97.5 F 70 12 132/70 98
05/03/24 07:00 05/03/24 07:00 05/03/24 07:00 05/03/24 07:00 05/03/24 07:00
I&O
05/02/24 05/03/24 05/04/24
06:59 06:59 06:59
Intake Total 480 / 480 1680 / 1680
Balance 480 / 480 1680 / 1680
[2024-05-03] MEDS: KEFLEX 500 MG PO (10:09)
[2024-05-03] MEDS: DYAZIDE 1 CAPSULE PO (10:09)
[2024-05-03] MEDS: TOPAMAX 25 MG PO (10:10)
[2024-05-03] MEDS: LOPRESSOR 12.5 MG PO (10:10)
[2024-05-03] MEDS: KCL 40 MEQ PO (10:12)
[2024-05-03] MEDS: OSCAL CAL 500 500 MG PO (10:12)
[2024-05-03] MEDS: MIRALAX 17 GRAMS PO (10:16)
[2024-05-03] MEDS: COLACE 100 MG PO (10:16)
[2024-05-03] MEDS: TYLENOL 650 MG PO (10:24)
--- NOTE | 2024-05-03 11:31 | CM ---
Addendum entered by Thelma Turner 05/03/24 16:00:
COVID results faxed to [facility] per request [phone]
Original Note:
CM reviewed pt with Dr Coronado- pt ready for dc
Meeting with dtr/Judi at nurse's desk as pt receiving bedside care
Bed offered at [facility] and dtr in agreement
IMM verbally reviewed- copy provided
Dtr in agreement with fees for WC van
Transport form completed
Number for van payment provided to dtr
COVID test requested per SNF request
Nursing, attending and SNF admissions/Emily [phone] aware of dc details
Discharge Disposition- [facility] via WC van
Phone- [phone] request rehab nurse
Fax- [phone]
[2024-05-03 11:37] LABS: COVID-19 Antigen Negative (Negative)
[2024-05-03] MEDS: ZOFRAN 4 MG IV (11:52)
--- NOTE | 2024-05-03 11:52 | CON.MD ---
Addendum entered and electronically signed by Neo Mcarthur MD 05/03/24 13:51:
A total of 60 minutes were spent with the patient preparing for the evaluation, obtaining history, performing examination and evaluation, counseling, data review, case management, care coordination, grey stock recorder, and EMR documentation.
Original Note:
Consultation - Medical
-
Referring Provider:�Dr. Ten Coronado
Chief Complaint:�Pubic rami fracture and intramuscular hematoma
�
History of Present Illness:�88-year-old female with PMH (as below) presented to [facility] on 04/28/2024 after tripping on a cord and falling in the bathroom. Noted with pelvic pain and found to have a left superior and inferior pubic rami
fracture as well as as well as left anterior pelvis/intramuscular hematoma of the left adductor musculature and left obturator internus muscle. Seen by orthopedics and is toe-touch weightbearing left lower extremity. Also noted with a large left
periorbital preseptal hematoma. Noted with dysuria and started on antibiotics. Also with hypokalemia with replacement.
�
Past Medical History:�Smoldering myeloma diagnosed 2 weeks ago, breast cancer status postlumpectomy/radiation, hypertension, hyperlipidemia, history of right lower extremity DVT, chronic neuropathy, UTI
Procedure History:�Breast lumpectomy, vein stripping procedure and another procedure to help with the pain of having the vein stripping
Family History:�Denies
�
Social History:�
Functional Level Premorbidly:�Independent with all activities�
Functional Level Currently:�Max assist toileting, mod assist toilet transfer. Min assist for sit to stand transfer. Ambulating 20 feet x 1 min assist with rolling walker requiring constant cues for toe-touch weightbearing.
�
Tobacco:Denies�
Alcohol:Denies�
Drug use:�Denies�
�
Lives with:�Lives alone in [place]
24-hour assistance available:�Yes
Number of floors:�2
# steps to enter:�2
# steps to second floor: Full flight
Potential First floor set up:�Possibly
Driving:�Yes
Occupation:�Retired
�
�
Allergies:�
Allergy/AdvReac Type Severity Reaction Status Date / Time
No Known Allergies Allergy Unverified 04/28/24 12:58
�
Review of Systems:�
Constitutional: (x) abNormal _felt a little off with morphine use.
Eye: (x) Normal _
Ear/Nose/Throat: (x) Normal _
Respiratory: (x) Normal _
Cardiovascular: (x) Normal _
Gastrointestinal: (x) Normal _
Genitourinary: (x) abNormal _had a few small pebble bowel movements but feels constipated.
Musculoskeletal: (x) abNormal _hip pain with activity of either leg.
Integumentary: (x) Normal _
Neurologic: (x) Normal _denies any vision problems, concentration problems or any other concussion symptoms. No headache.
Psychiatric: (x) Normal _
Endocrine: (x) Normal _
Hematologic/Lymphatic: (x) Normal _
Allergic/Immunologic: (x) Normal _
�
Medications:�
Active Current Visit Medication List
Category Date Time Status
Acetaminophen [Tylenol] Med 04/29/24 12:00 Active
650 mg PO Q4H
Calcium Carbonate [Oscal Juan C 500] Med 04/28/24 20:00 Active
500 mg PO BID
Cephalexin Monohydrate [Keflex] Med 05/03/24 08:00 Active
500 mg PO BID
Flush (0.9% Sodium Chloride) [Flush (Nss)] Med 04/28/24 19:00 Active
See Dose Instructions IV PER PROTOCOL
Metoprolol [Lopressor] Med 05/01/24 20:00 Active
12.5 mg PO BID
Ondansetron Injectable [Zofran] Med 04/29/24 12:39 Active
4 mg IV Q6HPRN PRN
Polyethylene Glycol Powder [Miralax] Med 05/03/24 10:00 Active
17 grams PO DAILY
Rosuvastatin Calcium [Crestor] Med 04/28/24 22:00 Active
5 mg PO HS
Topiramate [Topamax] Med 04/29/24 08:00 Active
25 mg PO DAILY
Topiramate [Topamax] Med 04/28/24 22:00 Active
25 mg PO HS
Tramadol HCl [Ultram] Med 04/29/24 08:13 Active
25 mg PO [id number] PRN
Triamterene/Hctz [Dyazide] Med 04/29/24 08:00 Active
1 capsule PO DAILY
�
Vitals:�
Temp Pulse Resp BP Pulse Ox
97.5 F 70 12 132/70 98
05/03/24 07:00 05/03/24 10:09 05/03/24 07:00 05/03/24 10:09 05/03/24 07:00
Height 4 ft 10 in
Actual Weight 43.545 kg
Body Mass Index (BMI) 20.1
�
Physical Exam:�
General Appearance/Observation: Well-developed, well-nourished female in no apparent distress.�
Pain/Comfort Assessment: Minimal pain at rest, can be severe with leg activity
Mood/Affect: Appropriate�
Skin: Left eye/face ecchymosis from supraorbital area to left chin
Eyes: Conjunctiva/Lids: normal���� Pupils: pupils equal round and reactive to light
Ears/Nose/Throat: oral mucosa moist,� throat clear.������������ Lips/Teeth/Gums: normal�
Cardiovascular: Heart: regular, no murmur�
Pulses: dorsalis pedis 2+ bilaterally�
Respiratory: Respiratory Effort/Chest Expansion: normal������� Auscultation: Clear to auscultation bilaterally�
Gastrointestinal: abdomen not tender, no distension, normal abdominal bowel sounds
Genitourinary: No [place]�
Rectal Exam: Deferred�
Extremities:�Edema: None�Cyanosis: None�Trophic�changes: None
�
Neurology Exam:
Orientation: Alert, Oriented to self, Time, Place�
Memory: Intact recent medical concerns
Comprehension: Intact
Two step command: Intact
Cranial Nerves:
�� CNII:�Pupillary light reflex: Intact���
�� CN III, IV, : Extraocular muscles: Intact�
�� CN VII:�Facial movement: Symmetric
�� CN VIII:�Hearing: Normal
�� CN IX/X:�Speech & swallow: Normal,�Position of Uvula: Midline
�� CN XI:�Shoulder shrug: Symmetric
�� CN XII:�Tongue protrusion: Midline
Sensory:
�� Light touch: Intact in bilateral upper and lower extremities
�
Musculoskeletal: Motor: (Manual muscle scale 0-5)�
Muscle SA EF WE EE FF FA HF KE DF EHL PF
Right� 5 5 5 5 5 5 4 4 5 5 5
Left 5 5 5 5 5 5 2 3+ 5 5 5
�
Tone: Normal in all extremities�
Range of Motion: Passively within functional limits in all extremities�
�
Lab Results
Laboratory Data
05/03/24 06:36
05/03/24 06:36
Total Bilirubin 0.6 mg/dl (0.2-1.3) 04/29/24 07:01
AST 22 U/L (14-36) 04/29/24 07:01
ALT 11 U/L (0-35) 04/29/24 07:01
Alkaline Phosphatase 63 U/L (38-126) 04/29/24 07:01
Total Protein 5.5 g/dl (6.3-8.2) L 04/29/24 07:01
Albumin 3.5 g/dl (3.5-5.0) 04/29/24 07:01
�
Diagnostic Results:as per HPI�
�
Assessment
88-year-old female status post fall with left superior and inferior pubic rami fracture as well as as well as left anterior pelvis/intramuscular hematoma of the left adductor musculature and left obturator internus muscle causing ADL and amatory
dysfunction.
Plan�
PM&RPT/OT to increase independence with ADLs, improve balance, coordination, endurance, strength, mobility, community reintegration, decreased burden of care on others and family education.�
�
Left superior and inferior pubic rami fracture as well as as well as left anterior pelvis/intramuscular hematoma of the left adductor musculature and left obturator internus muscle: Toe-touch weightbearing, pain control, follow-up with orthopedics.
-Discussed different types of pain medication and how they can affect her. Using tramadol 25 mg currently but not strong enough, consider 50 mg.
-Morphine did not work well for her based upon side effects of not feeling right and constipation.
UTI: On Keflex per primary team.
HTN: Metoprolol, triamterene/hydrochlorothiazide monitor closely�
Right leg neuropathic pain: Topamax, did not tolerate gabapentin due to lethargy for 2 days after taking it
HLD: Statin�
Anemia: Likely multifactorial.� Continue to monitor.�
Psych: Psychology consult.� Monitor mood, adjust medications as needed.�
Skin: monitor for pressure sores/rashes/lesions.�
FEN: potassium supplement
Pain: acetaminophen or tramadol as needed.� Can increase tramadol to 50 mg and monitor.
Bowel: Constipated. Colace and Senna, PRN bisacodyl.�
Bladder: Time void, PVRs, PRN straight cath.�
DVT Prophylaxis: history of DVT, suggest chemoprophylaxis.�
Pulmonary: Incentive spirometry�
Safety: Continue to reinforce assistance with all transfers.�
Code Status:� Full code
Dispo(date/plan/equipment needs): Home with family care.� Social history reviewed.�
Functional and Medical Goals:�Modified Independent with ADL�s, ambulation, transfers�
Discharge Destination: SNF�
�
Summary of recommendations:
-�Discharge Destination:�SNF�
Left superior and inferior pubic rami fracture as well as as well as left anterior pelvis/intramuscular hematoma of the left adductor musculature and left obturator internus muscle: Toe-touch weightbearing, pain control, follow-up with orthopedics.
-Discussed different types of pain medication and how they can affect her. Using tramadol 25 mg currently but not strong enough, consider 50 mg.
-Morphine did not work well for her based upon side effects of not feeling right and constipation.
UTI: On Keflex per primary team.
Bowel: Constipated. Colace and Senna, PRN bisacodyl.�
Pain: acetaminophen or tramadol as needed.� Can increase tramadol to 50 mg and monitor.
�
Thank you for allowing me to care for your patient. Please contact me with any questions or concerns.
[2024-05-03 11:59] VITALS: BP 120/65
[2024-05-03 15:00] VITALS: BP 118/68
[2024-05-03] MEDS: MORPHINE SULFATE 1 MG IV (16:19)
== END 2024-05-03 16:46 | DRG 536 ==
LOC: 4 EAST ACU 11:45
PROVIDERS: Nurse Practitioner Family; ADMITTING PHYSICIAN Hospitalist; ATTENDING PHYSICIAN Hospitalist; CONSULT PHYSICIAN Orthopaedic Surgery; CONSULT PHYSICIAN Physical Medicine & Rehabilitation; EMERGENCY PHYSICIAN Emergency Medicine
DX: S32.592A Other specified fracture of left pubis, initial encounter for closed fracture (principal); N39.0 Urinary tract infection, site not specified; S70.12XA Contusion of left thigh, initial encounter; S00.12XA Contusion of left eyelid and periocular area, initial encounter; W01.198A Fall on same level from slipping, tripping and stumbling with subsequent striking against other object, initial encounter; Y93.89 Activity, other specified; Y92.002 Bathroom of unspecified non-institutional (private) residence as the place of occurrence of the external cause; E78.00 Pure hypercholesterolemia, unspecified; D64.9 Anemia, unspecified; E87.6 Hypokalemia; K59.00 Constipation, unspecified; G62.9 Polyneuropathy, unspecified; E78.5 Hyperlipidemia, unspecified; R30.0 Dysuria; D47.2 Monoclonal gammopathy; I10 Essential (primary) hypertension; Z85.3 Personal history of malignant neoplasm of breast; Z92.3 Personal history of irradiation; Z86.718 Personal history of other venous thrombosis and embolism; Z11.52 Encounter for screening for COVID-19
CPT/HCPCS: 70480; 72192; 73502; 80048; 80053; 81003; 81015; 85025; 85027; 87077; 87086; 87186; 87811; 96374; 96375; 96376; 97116; 97163; 97167; 97530; 97535; 99285